=== PATIENT | male | born 1995 | race Caucasian/White ===

== ENCOUNTER → 2019-03-16 | Outpatient (CLI) | payer BC ==
--- NOTE | 2019-03-17 10:53 | XR ---
EXAMINATION TYPE: XR ankle complete RT DATE OF EXAM: 03/16/2019 COMPARISON: NONE HISTORY: 23 year-old male right ankle pain, lateral malleolus are patent and swelling after rolling i njury TECHNIQUE: 3 views FINDINGS: There is mild lateral malleolar soft tissue swelling. Ankle mortise is congruent with preservation of the distal tibiofibular overlap. Talar dome is intact. No acute fracture, subluxation, or dislocatio n. Os trigonum. IMPRESSION: Mild lateral malleolar soft tissue swelling. No underlying acute osseous abnormality seen.
== END | disposition home or self-care (01) ==
LOC: RADXRYALE 16:54
PROVIDERS: ATTEND Internal Medicine
DX: M79.89 Other specified soft tissue disorders (principal)